=== PATIENT | male | born 1940 | race Caucasian/White ===

== ENCOUNTER 2020-12-20 12:50 | Outpatient (CLI) | payer OTHER | END 2020-12-20 12:58 | disposition home or self-care (01) | LOC: SONOGRAMA 12:50 | PROVIDERS: ATTEND Orthopaedic Surgery | DX: M17.12 Unilateral primary osteoarthritis, left knee (principal); M71.22 Synovial cyst of popliteal space [Baker], left knee; M25.562 Pain in left knee; M25.561 Pain in right knee; S83.201A Bucket-handle tear of unspecified meniscus, current injury, left knee, initial encounter ==